=== PATIENT | female | born 1970 | race Caucasian/White ===

== ENCOUNTER 2023-04-24 11:34 | Emergency (ER) | payer OTHER ==
[~2023-04-24] VITALS: Ht 167.6 cm; Wt 71.2 kg
[~2023-04-24 11:34] MED LIST: SYNTHROID75 MCG
[2023-04-24] MEDS ORDERED: ROSUVASTATIN CAL5 MG PO (12:02)
== END 2023-04-24 18:19 | disposition home or self-care (01) ==
LOC: ER 11:34
PROVIDERS: General Practice
DX: R42 Dizziness and giddiness (principal)